=== PATIENT | female | born 1990 | race Caucasian/White ===

== ENCOUNTER 2018-02-09 08:01 | Emergency (ER) | payer BC ==
--- NOTE | 2018-02-14 08:03 | EDM.PDOC ---
ED HPI GENERAL MEDICAL PROBLEM - General Chief Complaint: Laceration Stated Complaint: ER Time Seen by Provider: 02/09/18 08:01 Source of Information: Reports: Patient, Family - History of Present Illness INITIAL COMMENTS - FREE TEXT/NARRATIVE: Pt. sustained numerous superficial bites and scratches to upper extremities while attempting to break up a dog/cat fight. All of the animals have their shots. Shes states that her tetanus was updated 1 year ago. This happened just prior to calling 911. She denies any injury other than to her hands and foreams , and a small very superficial laceration to her L lateral abdomen. Location: Reports: Abdomen, Upper Extremity, Left, Upper Extremity, Right - Related Data Allergies Allergy/AdvReac Type Severity Reaction Status Date / Time No Known Allergies Allergy Verified 02/09/18 08:13 Home Meds: Home Meds [id number]/Ferrous Fumarate/FA [ Tablet] 1 each PO DAILY 02/09/18 [History] Past Medical History DIRECTOR OF PRIMARY History: Reports: Social & Family History - Tobacco Use Smoking Status *Q: Unknown Ever Smoked ED ROS GENERAL - Review of Systems Review Of Systems: See Below Constitutional: Reports: No Symptoms HEENT: Reports: No Symptoms Respiratory: Reports: No Symptoms Cardiovascular: Reports: No Symptoms Endocrine: Reports: No Symptoms GI/Abdominal: Reports: No Symptoms : Reports: No Symptoms Musculoskeletal: Reports: Arm Pain, Hand Pain Skin: Reports: No Symptoms Neurological: Reports: No Symptoms Psychiatric: Reports: No Symptoms Hematologic/Lymphatic: Reports: No Symptoms Immunologic: Reports: No Symptoms ED EXAM, GENERAL - Physical Exam Exam: See Below Exam Limited By: No Limitations General Appearance: Alert, WD/WN, No Apparent Distress Eye Exam: Bilateral Eye: EOMI, Normal Fundi, PERRL Respiratory/Chest: No Respiratory Distress, Lungs Clear, Normal Breath Sounds, No Accessory Muscle Use, Chest Non-Tender Cardiovascular: Normal Peripheral Pulses, Regular Rate, Rhythm, No Edema, No Gallop, No JVD, No Murmur, No Rub Peripheral Pulses: 4+: Radial (L), Radial (R) GI/Abdominal: Normal Bowel Sounds, Soft, Non-Tender, No Organomegaly, No Distention, No Abnormal Bruit, No Mass, Other (small abrasion to L lateral abdomen) Back Exam: Normal Inspection, Full Range of Motion, NT Extremities: Other (diffuse abrasions/superficial bite martinez to both L and R upper extremity. ROM of fingers/wrists WNL.) Neurological: Alert, Oriented, CN II-XII Intact, Normal Cognition, Normal Gait, Normal Reflexes, No Motor/Sensory Deficits Course - Vital Signs Last Recorded V/S: Last Vital Signs Temp 36.3 C 02/09/18 08:01 Pulse 136 H 02/09/18 08:01 Resp 18 02/09/18 08:01 BP 140/82 02/09/18 08:01 Pulse Ox 96 02/09/18 08:01 - Radiology Interpretation Free Text/Narrative:: radiographs of both hands were negative for retained foreign material. Departure - Departure Time of Disposition: 09:20 Disposition: Home, Self-Care 01 Clinical Impression: Puncture wound - injury - Discharge Information Instructions: Animal Bite, [id number], Amoxicillin; Clavulanic Acid tablets Referrals: PCP,Not In Area [Primary Care Provider] - Forms: ED Department Discharge Additional Instructions: Remove dressings in 24 hours, or once they stop oozing blood. Keep the bite martinez open to the air. Return to ER or follow-up in clinic if redness, swelling, or discharge from the area, or if you have any fever/chills.
== END 2018-02-09 09:20 | disposition home or self-care (01) ==
LOC: VM.ED 08:01
DX: O9A.211 Injury, poisoning and certain other consequences of external causes complicating pregnancy, first trimester (principal); S61.452A Open bite of left hand, initial encounter; S61.451A Open bite of right hand, initial encounter; S51.852A Open bite of left forearm, initial encounter; S51.851A Open bite of right forearm, initial encounter; S30.811A Abrasion of abdominal wall, initial encounter; W55.81XA Bitten by other mammals, initial encounter; Z3A.09 9 weeks gestation of pregnancy
CPT/HCPCS: 73130-50; 99284